=== PATIENT | male | born 1955 | race Caucasian/White ===

== ENCOUNTER → 2018-03-22 | Day surgery (SDC) | payer OTHER ==
[2018-03-14 12:12] VITALS: BMI 32.0
--- NOTE | 2018-03-21 14:09 | HISTORY & PHYSICAL EXAMINATION ---
DATE OF ADMISSION: 03/22/2018 PREOPERATIVE HISTORY AND PHYSICAL HISTORY OF PRESENT ILLNESS: This is a 62-year-old male who presents for initial preoperative evaluation. Pain is located in the foot and ankle on the right, severe. The condition is about the same, graded as 7-8 on a 10 point scale, gradually worsening over time. Pain is described as aching, sore, and tender. Condition was first noted several years ago and has gotten worse over the last year. The patient denies any recent exposure, precipitating event, or history of this condition. Associated signs and symptoms include ankle swelling, mass, pain, and tenderness. The patient indicates accommodative padding, ice, rest, change of shoe gear does not change the condition and he is requesting surgical intervention due to the nature and severity of discomfort. PAST SURGICAL HISTORY: Bunionectomy in 2011 and 2012, knee surgery in 1968 and 1998, tumor removal in 1983, cyst excision in 1979, skin surgery in 2011, hernia repair, and nose surgery. PAST MEDICAL HISTORY: Kidney stones, hyperlipidemia, hypertension, heart valve replacement, skin cancer, gastrointestinal problems. MEDICATIONS: Alprazolam, Flonase, losartan, aspirin, Zyrtec, simvastatin. ALLERGIES: SEASONAL ALLERGIES. FAMILY HISTORY: Unremarkable. SOCIAL HISTORY: The patient admits to alcohol use, drinking described as social. The patient admits to tobacco use, half pack a day, currently not smoking, relates a smoking history of 12 pack years. REVIEW OF SYSTEMS: Unremarkable except chief complaint. PHYSICAL EXAMINATION: VITAL SIGNS: BP 134/97, temperature 97.6, height 6 feet 7 inches, weight 294 pounds, body mass index 33. CONSTITUTIONAL: The patient appears well-developed and well-nourished with good attention to grooming habits. HEAD AND FACE: Head is normocephalic and atraumatic without any gross head, face, or neck masses. EYES: Conjunctival and pupillary reaction to light and accommodation are normal. EARS, NOSE, MOUTH, AND THROAT: Unremarkable. NECK EXAMINATION: Neck is supple. Trachea is midline. CARDIOVASCULAR EXAMINATION: Normal S1, S2, without murmur, gallops, rubs, or clicks noted. Cardiovascular exam is normal. RESPIRATORY: Chest is symmetric. No scars are visible. No port or pacemaker. LUNGS: Clear to auscultation bilaterally and equal. GASTROINTESTINAL EXAMINATION: Abdominal organs, bladder, and kidney show no abnormalities, masses, tenderness, or rigidity. LYMPHATIC EXAMINATION: No popliteal, inguinal, or supraclavicular lymphadenopathy noted. LOWER EXTREMITY VASCULAR EXAMINATION: DP palpable. PT palpable. DERMATOLOGIC: There is a soft bursal projection elevated and painful over the posterior aspect of his right heel with redness and local irritation and local increased warmth over this area. NEUROLOGICAL: Touch, pin, vibratory pain, proprioception sensations are normal. MUSCULOSKELETAL: Muscle tone is normal. Muscle strength is 5/5. Examination of posterior superior aspect of the heel reveals decreased ankle joint range of motion with knee flexed and extended. Pain on direct insertional area of the Achilles tendon and pain directly over the prominent bone posterior superior aspect of the calcaneus. Decreased ankle joint range of motion with knee flexed and extended. IMPRESSION: 1. Heel spur syndrome. 2. Johana's deformity bilaterally. 3. Equinus. 4. Enthesis Achilles tendon bilaterally, right greater than left. 5. Exostosis, right calcaneus. 6. Difficulty walking. PLAN: I discussed conservative treatment options with the patient. The patient notes due to bone pain prominence and difficulty finding shoes, the patient would like to proceed with surgical correction. Surgical procedures to be performed: 1. Johana's resection, right lower extremity. 2. Possible lengthening of Achilles tendon, right. 3. Removal of exostosis of posterior aspect of calcaneus with possible reattachment Achilles tendon on the right lower extremity. This will be performed under general anesthesia as an outpatient at the hospital in the prone position. Procedures and complications were fully reviewed with the patient. Consent form, foot diagram, and illustration reviewed in all their entirety. All the patient's questions were answered. Complications were discussed in detail with the patient including pain, infection, swelling that may or may not be excessive, pins and needles feeling, numbness, metatarsalgia, excessive bleeding, delay or nonhealing of bone, delay or nonhealing of skin, enlarged scar, failure of the procedure, reoccurrence or worsening condition which may or may not require further surgery, adverse reaction to anesthesia, allergic reaction to suture or other implant material, loss of toe, foot, or leg, flail toe, stiff toe, short toe, elevated toe, transfer lesion or callus, peripheral neurovascular complications such as phlebitis, damage to nerves or vascular structures, severe or chronic pain, chronic nerve pain or damage, and general medical complications. The patient will be required to be nonweightbearing in a cast for a minimum of 6-8 weeks followed by weightbearing cast immobilization for 2-4 weeks and not return to dress shoe for 3 months depending on the postop edema. The patient is aware this is an elective type procedure and I recommended a second opinion. The patient stated he understood, consent form was signed with a copy of the foot diagram and illustration given to the patient. Verbal and written postop instructions were given. The patient will return to the office for postop check or sooner if medically necessary. Instructed to keep the dressing clean, dry, and intact until seen at the office. At time of the preoperative appointment, prescriptions for Keflex and Percocet were dispensed.
[~2018-03-22] VITALS: Ht 200.7 cm; Wt 133.6 kg
[~2018-03-22] MED LIST: ASPI81TA28 PO; ATROPINE SULFATE 0.1 MG/ML 5ML SYR IV PRN; CETI10TA84 PO; DEXAMETHASONE SOD INJ 4 MG/ML VIAL ONE; EpHEDrine SULFATE INJ 50 MG/ML AMP IV PRN; FENTANYL CITRATE INJ 50 MCG/1 ML 2 ML VIAL ONE; FLUT0.15 NAE; GLYCOPYRROLATE INJ 0.2 MG/ML VIAL ONE; HYDROmorphone INJ 2 MG/ML SYR/VIAL IV PRN; LACTATED RINGER'S 1000ML 1,000 ML IV SCH; LIDOCAINE HCL 2% 2 ML VIAL (20MG/ML) ONE; LOSA50TA6 PO; MIDAZOLAM HCL 1 MG/ML 2ML VIAL ONE; NEOSTIGMINE METHYLSULFATE 5 MG/5 ML SYR ONE; ONDANSETRON INJ 2 MG/ML 2 ML VIAL IV PRN; ONDANSETRON INJ 2 MG/ML 2 ML VIAL ONE; PHENYLEPHRINE 100MCG/ML 5ML SYR IV PRN; PRLSR20 PO; PROPOFOL IV EMULSION 10 MG/ML 20 ML VIAL ONE; ROPIVACAINE 0.5% 5 MG/ML 30 ML VIAL ONE; SIMV40TA2 PO; SODIUM CHLORIDE 0.9% 1000ML 1,000 ML IV SCH
[2018-03-22 07:16] VITALS: BP 135/97; PULSE 63; TEMP 36.6; O2SAT 96; Ht 200.7 cm; Wt 133.6 kg
[2018-03-22 08:36] LABS: HEMATOCRIT 44.4 % (42-52); HEMOGLOBIN 15.4 g/dL (14.0-18.0); MEAN CELL VOLUME 93.1 fL (80-100); MEAN CORPUSCULAR HEMOGLOBIN 32.3 pg (25-34); MEAN CORPUSCULAR HGB CONC 34.7 g/dl (32-36); MEAN PLATELET VOLUME 9.5 fL (7.4-10.4); PLATELET COUNT 188 K/uL (130-400); RED CELL DISTRIBUTION WIDTH CV 12.4 % (11.5-14.5); RED CELL DISTRIBUTION WIDTH SD 42.1 fL (36.4-46.3); WHITE BLOOD COUNT 4.66 K/uL (4.8-10.8)
--- NOTE | 2018-03-22 08:57 | History & Physical Bridge Note ---
H&P Re-Evaluation Bridge Note: I have examined the patient, reviewed the History & Physical and in the interval since the performance of the History & Physical I have noted the following changes of clinical significance: No changes noted
--- NOTE | 2018-03-22 09:00 | Discharge Instructions ---
Discharge Instructions Date of Service March 22, 2018. Admission Reason for Admission: Deb Right Foot Discharge Discharge Diagnosis / Problem: same as diagnosis Discharge Goals Goal(s): Decrease discomfort Activity Recommendations Activity Limitations: as noted below Medications: * Resume previous medications unless instructed by your surgeon. * Take your medications as prescribed. Call our office ([phone]) at any time, if you experience severe pain that does not subside shortly after taking your pain medication. Activity: * Do not put any standing weight on your operated foot/ankle. Use the crutches or walker as instructed. Special Care: * Keep your bandage clean and dry. Do not remove your bandage unless otherwise instructed. A small amount of blood may appear on the bandage over the surgical site. Call our office ([phone]) if you bandage becomes blood-soaked or wet. * Elevate your operated foot/ankle on pillows, above the level of your heart, as often as possible during the first 2-3 days following surgery. Keep your knee flexed slightly with a pillow under your knee when you elevate your foot/ankle. * Apply a ice bag to your foot/ankle over the operative site for 20-30 minutes out of each hour while you are awake. Do not allow the ice bag to directly contact bare skin. * Avoid bumping or handling any pins visible in your toes. If any pin feels or appears loose, call the office ([phone]). * Take your oral temperature in the morning and at bedtime. Call our office ([phone]) if your temperature rises above 101 degrees Fahrenheit. Call your surgeon's office at ([phone]) for any problems or concerns such as excessive bleeding and/or pain unrelieved by your prescribed pain medications. If you have any questions, please do not hesitate to ask them. Avoid all tobacco products. If you need help to stop smoking, call [place] FREE QUITLINE at . This is a free call. Follow-up: Follow-up with Dr. Daniels . Current Hospital Diet Patient's current hospital diet: Discharge Diet Recommended Diet: Diabetes Type 2 Diet Pending Studies Studies pending at discharge: no Medical Emergencies . Who to Call and When: Medical Emergencies: If at any time you feel your situation is an emergency, please call 911 immediately. . Non-Emergent Contact Non-Emergency issues call your: Primary Care Provider . "Provider Documentation" section prepared by Magui Ferrer. .
--- NOTE | 2018-03-22 11:25 | [facility] Post Operative Brief Note ---
Immediate Operative Summary Operative Date March 22, 2018. Pre-Operative Diagnosis 1. Heel spur syndrome. 2. Johana's deformity bilaterally. 3. Equinus. 4. Enthesis Achilles tendon bilaterally, right greater than left. 5. Exostosis, right calcaneus. 6. Difficulty walking. Post-Operative Diagnosis 1. Heel spur syndrome. 2. Johana's deformity bilaterally. 3. Equinus. 4. Achilles tendonitis 4. Enthesis Achilles tendon bilaterally, right greater than left. 5. Exostosis, right calcaneus. 6. Difficulty walking. Procedure(s) Performed Right Achilles tendon lengthening and repair, Osteotomy calcaneus, Exostectomy calcaneus and tendon transfer. Surgeon Dr. Magui Daniels, D.P.M. Physician Office Assistant Surgeon(s) None Estimated Blood Loss 5ml Findings Consistent with Post-Op Diagnosis Specimens A. Calcaneous bone right foot Anesthesia Type General Regional
--- NOTE | 2018-03-22 11:39 | DIAGNOSTIC IMAGING REPORT ---
INTRAOPERATIVE RIGHT ANKLE SINGLE VIEW CLINICAL HISTORY: Right ankle resection and tendon repair COMPARISON STUDY: No previous studies for comparison. FINDINGS: 4 seconds of fluoroscopic time was utilized. A single intraoperative fluoroscopic spot images provided for interpretation. There are postsurgical changes of a posterior calcaneal osteotomy. Also is made of 3 small screws within the fifth metatarsal. IMPRESSION: Postsurgical changes of a posterior calcaneal osteotomy Electronically signed by: Tremayne Crane M.D. 03/22/2018 11:37 AM Dictated Date/Time: 03/22/2018 11:36 AM
--- NOTE | 2018-03-22 11:46 | Anesthesiology Progress Note ---
Anesthesia Post Op Note Date & Time March 22, 2018 at 11:45 Vital Signs Vital Signs Past 12 Hours Date Time Temp Pulse Resp B/P (MAP) Pulse Ox O2 Delivery O2 Flow Rate FiO2 03/22/18 07:16 36.6 63 20 135/97 (110) 96 Room Air Notes Mental Status: alert / awake / arousable, participated in evaluation Pt Amnestic to Procedure: Yes Nausea / Vomiting: adequately controlled Pain: adequately controlled Airway Patency, RR, SpO2: stable & adequate BP & HR: stable & adequate Hydration State: stable & adequate Anesthetic Complications: no major complications apparent
[2018-03-22 12:30] VITALS: BP 118/72; PULSE 56; TEMP 36.5; O2SAT 96
[2018-03-22 13:00] VITALS: BP 128/74; PULSE 56; TEMP 36.5; O2SAT 93
--- NOTE | 2018-03-22 15:13 | OPERATIVE REPORT ---
DATE OF OPERATION: 03/22/2018 SURGEON: Magui Daniels DPM PREOPERATIVE DIAGNOSES: 1. Johana's deformity, right. 2. Enthesis Achilles tendon with tendinitis, right. 3. Equinus bilaterally. 4. Retrocalcaneal exostosis, right heel. POSTOPERATIVE DIAGNOSES: 1. Johana's deformity, right. 2. Enthesis Achilles tendon with tendinitis, right. 3. Equinus bilaterally. 4. Retrocalcaneal exostosis, right heel. PROCEDURES: 1. Partial excision of calcaneus over Johana's deformity, right lower extremity. 2. Repair of Achilles tendon. 3. Lengthening of Achilles tendon. 4. Tendon transfer of Achilles tendon. 4. Ostectomy with removal of retrocalcaneal spur of posterior calcaneus with reattachment of Achilles tendon, right. ANESTHESIA: General with regional field block performed by anesthesia department. HEMOSTASIS: Pneumatic thigh tourniquet inflated to a level of 250 mmHg for a total tourniquet time of 73 minutes. ESTIMATED BLOOD LOSS: Less than 5 mL. MATERIALS: 2-0, 3-0 Vicryl, 4-0 nylon, Arthrex anchor SpeedBridge with four 4.75 x 19.1 Biocomposite SwiveLock screws. INJECTABLES: None. COMPLICATIONS: None. CONDITION: The patient tolerated the procedure and anesthesia well without complications, transferred to the recovery room with vital signs stable and neurovascular status intact. PROCEDURE IN DETAIL: The patient was placed on the OR table in supine position. Upon completion of general anesthesia and regional field block by the anesthesia department, the extremity was scrubbed, prepped and draped in the usual aseptic fashion. Attention was directed to the right lower extremity where a well-padded tourniquet was applied to the extremity and then the patient was transferred to the prone position with care to preserve all neurovascular structures just lateral following the Achilles tendon with care to avoid the sural nerve and all neurovascular structures. Dissection was carried down to the level of the Achilles tendon. There was an enlarged posterior superior aspect of the calcaneus that was removed with a sagittal saw. There was extensive amount of hypertrophic bone and an exostectomy created in the posterior calcaneus with removal of the spur and a large amount of protuberant bone over the posterior aspect of the calcaneus. This was removed in total with as few cuts as possible to avoid weakening of the calcaneus. All rough edges were smoothed. An intraoperative x-ray was used to examine the area. Using the Arthrex anchors, a SpeedBridge was created directly over the posterior aspect and reattachment of the tendon, this was reattached slightly more proximally on the calcaneus to try to avoid lengthening. It should be noted that the tendon was not completely taken off its attachment, roughly two-thirds of the attachment more from the lateral direction to gain access to the retrocalcaneal exostosis. SpeedBridge was placed. The Achilles tendon was repaired using 2-0 Vicryl and FiberWire in a [place] fashion. It should be noted the tendon was transferred slightly more proximal, however, despite this transfer, there was still some shortening. A Z-plasty lengthening was performed 10 cm apart. The fibers distally were cut retrograde 10 cm proximal into the leg. The fibers were cut towards the skin and the tendon was lengthened in a Z-plasty fashion obtaining approximately 10 degrees of dorsiflexion. The wound was copiously lavaged with normal saline. Closure began of the deep structures using 2-0 and 3-0 Vicryl. Superficial deep structures were closed using 5-0 PDS and 4-0 nylon. Pneumatic ankle tourniquet was released with normal hyperemic hurst digits 1 through 5 and a well-padded posterior splint was applied to the left lower extremity. I attest to the content of the Intraoperative Record and any orders documented therein. Any exception s are noted below.
== END | disposition home or self-care (01) ==
LOC: C.ACU 06:41
PROVIDERS: ATTEND Podiatrist Foot & Ankle Surgery
DX: M21.6X1 Other acquired deformities of right foot (principal); M77.31 Calcaneal spur, right foot; M92.61 Juvenile osteochondrosis of tarsus, right ankle; I10 Essential (primary) hypertension; G47.33 Obstructive sleep apnea (adult) (pediatric); K21.9 Gastro-esophageal reflux disease without esophagitis; E78.5 Hyperlipidemia, unspecified; F17.200 Nicotine dependence, unspecified, uncomplicated; Z87.442 Personal history of urinary calculi; Z95.2 Presence of prosthetic heart valve; Z85.828 Personal history of other malignant neoplasm of skin; Z79.82 Long term (current) use of aspirin